=== PATIENT | female | born 1970 | race Caucasian/White ===

== ENCOUNTER 2023-11-18 06:19 | Day surgery (SDC) | payer BC, SELFPAY ==
[2023-11-18] VITALS (11 sets, daily range): BP systolic 103–133; BP diastolic 63–82; BMI 29.2
[2023-11-18] MEDS: NORMOSOL-R 1000 IV (07:35)
== END 2023-11-18 10:10 | disposition home or self-care (01) ==
LOC: SDS 06:19
PROVIDERS: ATTENDING PHYSICIAN Obstetrics & Gynecology
DX: N92.4 Excessive bleeding in the premenopausal period (principal)
CPT/HCPCS: 58563; 87070

== ENCOUNTER → 2025-05-02 19:58 | Outpatient (REF) | payer OTHER, BC, SELFPAY | LOC: MRI 19:58 | PROVIDERS: ATTENDING PHYSICIAN Nurse Practitioner Adult Health; PRIMARYCARE PHYSICIAN Physician Assistant Medical | DX: M79.662 Pain in left lower leg (principal) | CPT/HCPCS: 73718 ==